=== PATIENT | female | born 1975 | race Hispanic/Latino ===

== ENCOUNTER 2017-11-19 02:27 | Emergency (ER) | payer BC ==
[2017-11-19 03:16] LABS: Bilirubin Negative (Negative); Blood, Urine Large (Negative); Clarity CLEAR (Clear); Glucose, Urine (Dipstick) Negative (Negative); Leukocyte Negative (Negative); Nitrite Negative (Negative); Protein, Urine (Dipstick) Negative (Neg-Trace); Specific Gravity, Urine 1.021 (1.002-1.036); Urobilinogen 0.2 mg/dL (0.2-1.0); pH, Urine 6.5 (5.0-9.0)
[2017-11-19 03:19] LABS: Bacteria/HPF None Seen HPF (None Seen); Hyaline Casts/LPF 0-3 HYALINE CAST LPF (0-3 Hyaline); RBC/HPF GREATER THAN 50-TNTC HPF (0-3); Squamous Epithelial 0-3 HPF (0-3); WBC/HPF 0-3 HPF (0-3)
[2017-11-19 03:38] LABS: #Eosinphils 0.1 thou/uL (0.0-0.7); #Lymphocytes 1.6 thou/uL (1.20-3.40); #Monocytes 0.6 thou/uL (0.11-0.59); #Neutrophils 5.2 thou/uL (1.40-6.50); %Basophils 0.4 % (0.0-1.0); %Eosinophils 1.7 % (0.0-10.0); %Lymphocytes 21.3 % (21.0-51.0); %Monocytes 7.9 % (0.0-10.0); %Neutrophils 68.7 % (42.0-75.0); Hemoglobin 12.5 g/dL (12.0-16.0); Mean Corpuscular HGB CONC 33.3 g/dL (32.0-36.0); Mean Corpuscular Hemoglobin 29.9 pg (27.0-31.0); Mean Corpuscular Volume 89.8 fl (81.0-99.0); Mean Platelet Volume 9.1 fL (7.4-10.4); Platelet Count 148 thou/uL (130-400); RBC Distribution Width 12.7 % (11.5-14.5); Red Blood Cell (RBC) Count 4.17 mill/uL (4.20-5.40); White Blood Cell (WBC) Count 7.6 thou/uL (4.8-10.8)
[2017-11-19 03:48] LABS: Pregnancy Test - Urine (BHCG) Negative (Negative); Pregu Control Background? CLEAR/WHITE (CLR/WHITE); Pregu Control Bar Appear? YES (CONTROL BAR); Specific Gravity 1.021 (1.002-1.036)
[2017-11-19 03:53] LABS: ALT (SGPT) 23 U/L (8-55); AST (SGOT) 20 U/L (5-34); Albumin 3.8 g/dL (3.5-5.0); Alkaline Phosphatase 128 U/L (40-150); Anion Gap 7 mmol/L (10-20); BUN (Urea Nitrogen) 16 mg/dL (7.0-18.7); Calc. Creatinine Clearance 0 mL/min (70-130); Calcium 8.8 mg/dL (7.8-10.44); Carbon Dioxide 24 mmol/L (22-29); Chloride 109 mmol/L (98-107); Estimated GFR-MDRD Greater than 90; Globulin 2.9 g/dL (2.4-3.5); Glucose 102 mg/dL (70-105); Lipase 16 U/L (8-78); Potassium 3.8 mmol/L (3.5-5.1); Protein, Total 6.7 g/dL (6.0-8.3); Sodium 136 mmol/L (136-145)
[2017-11-19] MEDS ORDERED: Ketorolac Tromethamine 60 MG/2 ML VIAL ONE (04:09)
--- NOTE | 2017-11-19 08:12 | ULT ---
PRELIMINARY REPORT/[facility]/EMERGENCY AFTER HOURS PROCEDURE: EXAM: US Pelvis Complete, Transabdominal US Pelvis, Transvaginal US Duplex Arterial/Venous of the Pelvis, Complete CLINICAL HISTORY: 42 years old, female; Pain; Pelvic pain; Patient HX: Pelvic cramping pain from midline pelvic to rlq TECHNIQUE: Real-time transabdominal and transvaginal pelvic ultrasound (complete) with image documentation. Transvaginal imaging was used for better evaluation of the endometrium and adnexa. Real-time duplex ultrasound scan of the arterial and venous flow of the pelvis with color Doppler amarilis w and spectral waveform analysis was also performed for evaluation of pelvic and ovarian blood flow a nd torsion. COMPARISON: No relevant prior studies available. FINDINGS: Transabdominal ultrasound did not reveal detailed visualization of endometrium/uterus. Ovaries were also not visualized on transabdominal ultrasound. Therefore a transvaginal ultrasound wa s performed for further evaluation. Uterus/cervix: Endometrium measures 1.5 cm in thickness. No myometrial mass. Right ovary: No acute findings. No mass. Normal blood flow. No evidence of torsion. Left ovary: Left ovarian hypoechoic lesion with low level echoes measuring up to 3 cm; differential d iagnosis includes corpus luteum, hemorrhagic cyst/endometrioma. Otherwise no acute findings. Normal blood flow. No evidence of torsion. Free fluid: No free fluid. IMPRESSION: No definite acute findings. Thickened endometrium; correlate with menstrual cycle. Left ovarian compl ex lesion/cyst described above; recommend followup as indicated. Thank you for allowing us to participate in the care of your patient. Dictated and Authenticated by: Brayan Alfaro MD 11/19/2017 5:38 AM Central Time ([place] & [place]) FINAL REPORT TRANSABDOMINAL AND TRANSVAGINAL AND FOFANA SCALE WITH COLOR FLOW AND SPECTRAL DOPPLER ULTRASOUND OF THE PELVIS: Date: 11/19/17 FINDINGS/IMPRESSION: I agree with the preliminary report given by Dr. Brayan Alfaro of [facility]. POS: OFF
== END 2017-11-19 06:51 | disposition home or self-care (01) ==
LOC: ERS 02:27
DX: N83.202 Unspecified ovarian cyst, left side (principal); E11.9 Type 2 diabetes mellitus without complications
CPT/HCPCS: 36415; 76856; 80053; 81003; 81015; 81025; 83690; 85025; 96372; J1885

== ENCOUNTER 2019-02-16 21:58 | Inpatient (IN) | payer BC ==
[~2019-02-16 21:58] MED LIST: ISOVUE-370 76%-LOCM 1 ML ONE
[2019-02-16 22:53] LABS: #Eosinphils 0.1 thou/uL (0.0-0.7); #Lymphocytes 2.6 thou/uL (1.20-3.40); #Monocytes 0.5 thou/uL (0.11-0.59); #Neutrophils 4.5 thou/uL (1.40-6.50); %Basophils 0.5 % (0.0-1.0); %Eosinophils 1.4 % (0.0-10.0); %Lymphocytes 33.3 % (21.0-51.0); %Monocytes 6.7 % (0.0-10.0); Hemoglobin 12.2 g/dL (12.0-16.0); Mean Corpuscular HGB CONC 33.2 g/dL (32.0-36.0); Mean Corpuscular Hemoglobin 29.2 pg (27.0-31.0); Mean Corpuscular Volume 87.9 fL (78.0-98.0); Mean Platelet Volume 9.9 fL (7.4-10.4); Platelet Count 192 thou/uL (130-400); RBC Distribution Width 11.9 % (11.5-14.5); Red Blood Cell (RBC) Count 4.17 mill/uL (4.20-5.40); White Blood Cell (WBC) Count 7.8 thou/uL (4.8-10.8)
[2019-02-16 23:12] LABS: ALT (SGPT) 37 U/L (8-55); AST (SGOT) 28 U/L (5-34); Albumin 4.2 g/dL (3.5-5.0); Alkaline Phosphatase 157 U/L (40-150); Anion Gap 15 mmol/L (10-20); BUN (Urea Nitrogen) 13 mg/dL (7.0-18.7); Bilirubin, Total 0.5 mg/dL (0.2-1.2); Calc. Creatinine Clearance 0 mL/min (70-130); Calcium 9.6 mg/dL (7.8-10.44); Carbon Dioxide 20 mmol/L (22-29); Chloride 108 mmol/L (98-107); Estimated GFR-MDRD Greater than 90; Globulin 3.3 g/dL (2.4-3.5); Glucose 107 mg/dL (70-105); Potassium 3.5 mmol/L (3.5-5.1); Protein, Total 7.5 g/dL (6.0-8.3); Sodium 139 mmol/L (136-145)
[2019-02-16] MEDS ORDERED: Ondansetron PF 4 MG/2 ML Vial ONE (23:19)
[2019-02-16] MEDS ORDERED: Morphine 4 MG/ML VIAL ONE (23:19)
[2019-02-16 23:38] LABS: Bilirubin Negative (Negative); Blood, Urine Negative (Negative); Clarity CLOUDY (Clear); Glucose, Urine (Dipstick) Negative (Negative); Leukocyte Trace (Negative); Nitrite Negative (Negative); Protein, Urine (Dipstick) 30 mg/dL (Neg-Trace); Specific Gravity, Urine 1.024 (1.002-1.036)
[2019-02-16 23:40] LABS: Bacteria/HPF Rare-Few HPF (None Seen); Hyaline Casts/LPF 4-6 HYALINE CAST LPF (0-3 Hyaline); WBC/HPF 0-3 HPF (0-3)
[2019-02-16 23:53] LABS: RBC/HPF 0-3 HPF (0-3)
[2019-02-17] MEDS ORDERED: ceFOXitin 2 GM/50 ML Duplex BAG IVPB SCH (01:30)
[2019-02-17] MEDS ORDERED: Ondansetron PF 4 MG/2 ML Vial IVP PRN ×2 (02:26→02:55)
[2019-02-17] MEDS ORDERED: Morphine 4 MG/ML VIAL SLOW IVP PRN (02:26)
[2019-02-17] MEDS ORDERED: Ondansetron ODT 4 MG TAB SL PRN (02:26)
[2019-02-17] MEDS ORDERED: Dextrose 5 % And 0.9 % NaCl 1,000 ML IV SCH (02:30)
[2019-02-17] MEDS ORDERED: Promethazine HCl 25 MG/ML VIAL IM PRN ×2 (02:55→14:22)
[2019-02-17] MEDS ORDERED: hydrALAZINE 20 MG/ML VIAL SLOW IVP PRN (02:55)
[2019-02-17] MEDS ORDERED: Dextrose 5% in Water 1,000 ML IV PRN (02:55)
[2019-02-17] MEDS ORDERED: Morphine 2 MG/ML SYRINGE SLOW IVP PRN (02:55)
[2019-02-17] MEDS ORDERED: Acetaminophen 325 MG TAB PO PRN (02:55)
[2019-02-17] MEDS ORDERED: Dextrose 50% Abboject 50 ML SYRINGE SLOW IVP PRN (02:55)
[2019-02-17 03:12] VITALS: BMI 33.6
[2019-02-17] MEDS: Lactated Ringer's 1,000 ML IV SCH ×3 (03:26→19:45)
[2019-02-17 05:08] LABS: #Eosinphils 0.1 thou/uL (0.0-0.7); #Lymphocytes 2.5 thou/uL (1.20-3.40); #Monocytes 0.6 thou/uL (0.11-0.59); #Neutrophils 4.9 thou/uL (1.40-6.50); %Basophils 0.4 % (0.0-1.0); %Eosinophils 0.9 % (0.0-10.0); %Lymphocytes 30.6 % (21.0-51.0); %Monocytes 7.8 % (0.0-10.0); %Neutrophils 60.4 % (42.0-75.0); Hemoglobin 11.9 g/dL (12.0-16.0); Mean Corpuscular HGB CONC 32.8 g/dL (32.0-36.0); Mean Corpuscular Hemoglobin 29.4 pg (27.0-31.0); Mean Corpuscular Volume 89.4 fL (78.0-98.0); Mean Platelet Volume 9.8 fL (7.4-10.4); Platelet Count 189 thou/uL (130-400); Red Blood Cell (RBC) Count 4.06 mill/uL (4.20-5.40); White Blood Cell (WBC) Count 8.1 thou/uL (4.8-10.8)
[2019-02-17 05:27] LABS: Anion Gap 11 mmol/L (10-20); BUN (Urea Nitrogen) 9 mg/dL (7.0-18.7); Calc. Creatinine Clearance 145 mL/min (70-130); Calcium 8.8 mg/dL (7.8-10.44); Carbon Dioxide 21 mmol/L (22-29); Chloride 108 mmol/L (98-107); Estimated GFR-MDRD Greater than 90; Glucose 108 mg/dL (70-105); Potassium 3.9 mmol/L (3.5-5.1); Sodium 136 mmol/L (136-145)
[2019-02-17] MEDS: Ketorolac Tromethamine 30 MG/ML VIAL IVP SCH ×3 (06:04→18:11)
--- NOTE | 2019-02-17 07:09 | HP ---
CHIEF COMPLAINT: Right lower quadrant abdominal pain and right mid to lower back pain. HISTORY OF PRESENT ILLNESS: The patient is a 43-year-old female. She underwent a robotic hysterectomy and bilateral salpingo-oophorectomy per Dr. Bre Noble on January 30 (postoperative day #18 today). She tells me she did not have any problems after that surgery. Yesterday, about 24 hours ago, she developed pain in her right mid abdomen and it seemed to radiate through to her back. She had nausea and vomiting associated with this. This pain persisted through the day and into this evening and she presented to the hospital for further evaluation. She was seen in the emergency room where she underwent laboratory and radiologic studies. The CT scan of her abdomen was consistent with an enlarged appendix, but with minimal stranding around this. There was apparently some consideration of choledocholithiasis, but I am not able to appreciate this on examination of her CT. Laboratory studies revealed that her urine was cloudy with a trace of leukocyte esterase, but only 0-3 white blood cells and rare bacteria. Her CBC showed a white blood cell count of 7.8 with a hemoglobin of 12.2 and an entirely normal differential. Chemistry profile revealed essentially normal electrolytes. Her CO2 was a little bit low at 20. Her liver function tests are normal except for an alkaline phosphatase of 157. PAST MEDICAL HISTORY: She denies any significant medical problems. PAST SURGICAL HISTORY: Only the robotic assisted hysterectomy and bilateral salpingo-oophorectomy on January 30. ALLERGIES: NO KNOWN DRUG ALLERGIES. CHRONIC MEDICATIONS: None. PERSONAL AND SOCIAL HISTORY: She is with 3 children. Her is present at bedside. She does not smoke. Does not drink alcohol. She works at [employer] usually. She is originally from [place], but has lived here since she was 14 years old. PRIMARY CARE PHYSICIAN: Isi Arshad MD REVIEW OF SYSTEMS: Ten system review was obtained and was otherwise negative. FAMILY HISTORY: Noncontributory. PHYSICAL EXAMINATION: VITAL SIGNS: She is afebrile. Pulse is 72, blood pressure is 110/70. GENERAL: She is a well-developed, well-nourished, pleasant female resting in bed, in no acute distress. She is alert and oriented x3. HEAD, EYES, EARS, NOSE, AND THROAT: Unremarkable. NECK: Supple without mass or tenderness. LUNGS: Clear to auscultation throughout. CARDIAC: Regular rate and rhythm without murmur. ABDOMEN: Soft with hypoactive bowel sounds. It is nondistended. Her robotic incisions all appear to be nicely healed. She has no tenderness at all on palpation of the left side of her abdomen. Her right upper quadrant and the subcostal areas are nontender as well. She does have focal tenderness in the right lower quadrant with guarding. EXTREMITIES: Unremarkable. ASSESSMENT: The patient with CT evidence of appendicitis. It is unusual that her white blood cell count and differential are entirely normal, but her CT scan goes along with her physical examination. I would recommend a laparoscopic appendectomy. I have discussed the operation in detail with the patient as well as potential risks. She understands and agrees to proceed with surgery. She will be admitted to the hospital and IV antibiotics will be initiated and the surgery will be performed later today. Job ID: [id number]
--- NOTE | 2019-02-17 07:27 | ULT ---
RIGHT UPPER QUADRANT ULTRASOUND: Date: 02/17/19 INDICATION: Right upper quadrant pain. COMPARISON: CT abdomen and pelvis with contrast dated 02/17/19. FINDINGS: There is a small focal region of echogenicity and shadowing near the expected region of the proximal common bile duct or cystic duct which may reflect shadowing from adjacent bowel gas; however, a small , impacted stone within the proximal common bile duct cannot be entirely excluded. No definite stone is seen by CT; however, not all stones are apparent by CT. There is mild intrahepatic biliary ductal dilatation. Common bile duct is 6 mm, which is upper limits of normal for size. A small amount of slu dge is present within the gallbladder. There is mild gallbladder wall thickening. There is report of a positive sonographic Kidd's sign. No pericholecystic fluid is evident. The pancreas is largely ob scured. There is slight increased echogenicity of the liver consistent with fatty infiltration. The r ight kidney measured 10.0 cm in length without evidence of focal renal lesion or hydronephrosis. IMPRESSION: 1. Small suspected shadowing stone seen near the region of the cystic duct or possibly within the re gion of the proximal common bile duct. There is slight prominence of intrahepatic biliary system. The re is a mild amount of gallbladder sludge with gallbladder wall thickening and positive sonographic M urphy's sign. Findings may reflect sequelae of an acute calculus cholecystitis with associated choled ocholithiasis. Further evaluation with MRCP may be helpful for additional characterization. 2. Fatty liver. POS: BH
--- NOTE | 2019-02-17 07:29 | CT ---
PRELIMINARY REPORT: CT Abdomen and Pelvis With Contrast EXAM DATE/TIME: 02/17/2019 12:01 AM CLINICAL HISTORY: 43 years old, female; Abdominal pain; Prior surgery; Patient HX: Er 6. Abdomen soft, tender, to the right upper quadrant, and recent hysterectomy -oophorectomy - with incisions to umbilicus and right and left mid quads TECHNIQUE: Axial computed tomography images of the abdomen and pelvis with intravenous contrast. Coronal reformatted images were created and reviewed. COMPARISON: No relevant prior studies available. FINDINGS: ABDOMEN: Liver: Normal. No mass. Gallbladder and bile ducts: 4 mm stone in the distal common bile duct with mild prominence of the common bile duct up to 8 mm in caliber, compatible with obstructive choledocholithiasis. Gallbladder sludge/cholelithiasis. No cholecystitis or biliary ductal dilatation. Pancreas: Normal. No ductal dilation. Spleen: Normal. No splenomegaly. Adrenals: Normal. No mass. Kidneys and ureters: Normal. No hydronephrosis. Stomach and bowel: No bowel wall thickening or intestinal obstruction. Appendix: The appendix is enlarged at 1.2 cm in caliber with mild periappendiceal inflammation, consistent with acute appendicitis. Appendix is retrocecal. PELVIS: Bladder: Unremarkable as visualized. Reproductive: Prior hysterectomy. ABDOMEN and PELVIS: Intraperitoneal space: No pneumoperitoneum or abscess. Bones/joints: No acute fracture. No dislocation. Soft tissues: Unremarkable. Vasculature: Normal. No abdominal aortic aneurysm. Lymph nodes: Normal. No enlarged lymph nodes. IMPRESSION: 1. Acute retrocecal appendicitis. 2. 4 mm stone in the distal common bile duct with mild prominence of the common bile duct up to 8 mm in caliber, compatible with obstructive choledocholithiasis. Thank you for allowing us to participate in the care of your patient. Dictated and Authenticated by: Nasir Zhang MD 02/17/2019 12:47 AM Central Time ([place] & [place]) FINAL REPORT: CT abdomen and pelvis with IV contrast 02/17/2019 performed on emergent basis at 0003 hours HISTORY: Right lower quadrant pain. FINDINGS: I agree with the preliminary report by Dr. Zhang from [facility]. Acute appendicitis. Obstructive choledocholithiasis with probable acute cholecystitis. Code QA. Transcribed Date/Time: 02/17/2019 8:34 AM
[2019-02-17] MEDS: Famotidine/PF 20 mg/2ml Vial SLOW IVP SCH ×2 (10:07→22:08)
[2019-02-17] MEDS: cefOXitin Sodium/Dextrose,Iso 2 GM in Premix Bag 1 BAG IVPB SCH ×2 (11:38→18:37)
[2019-02-17] MEDS ORDERED: Bupivacaine/Epinephrine 0.25% 30 ML VIAL ONE (12:38)
[2019-02-17] MEDS ORDERED: Lidocaine 2% Jelly 5 ML TUBE ONE (12:42)
[2019-02-17] MEDS ORDERED: Fentanyl 100 MCG/2 ML VIAL ONE ×3 (12:42→14:51)
[2019-02-17] MEDS ORDERED: Dexamethasone 20 MG/5 ML VIAL ONE (13:43)
[2019-02-17] MEDS ORDERED: Lidocaine 1% PF 5 ML VIAL ONE (13:43)
[2019-02-17] MEDS ORDERED: Glycopyrrolate 0.2 MG/ML 5 ML SYRINGE ONE (13:43)
[2019-02-17] MEDS ORDERED: PROPOFOL 200 MG/20 ML VIAL ONE (13:43)
[2019-02-17] MEDS ORDERED: Succinylcholine Chloride 20 MG/ML 10 ml SYRINGE FS ONE (13:43)
[2019-02-17] MEDS ORDERED: ePHEDrine 50 MG/ML VIAL ONE (13:43)
[2019-02-17] MEDS ORDERED: PHENYLEPHRINE-NS 100 MCG/ML 10 ML SYRINGE ONE (13:43)
[2019-02-17] MEDS ORDERED: Ondansetron PF 4 MG/2 ML Vial ONE (13:43)
[2019-02-17] MEDS ORDERED: Rocuronium Bromide 10 MG/ML (10ML VIAL) ONE (13:43)
[2019-02-17] MEDS ORDERED: Promethazine HCl 25 MG/ML VIAL SLOW IVP PRN (14:22)
[2019-02-17] MEDS ORDERED: Ondansetron HCl/PF 4 MG/2 ML Vial IVP PRN (14:22)
[2019-02-18] MEDS: Ketorolac Tromethamine 30 MG/ML VIAL IVP SCH ×2 (00:09→05:30)
[2019-02-18] MEDS: cefOXitin Sodium/Dextrose,Iso 2 GM in Premix Bag 1 BAG IVPB SCH ×2 (02:23→10:14)
[2019-02-18] MEDS: Lactated Ringer's 1,000 ML IV SCH (03:49)
[2019-02-18 04:59] LABS: #Lymphocytes 1.3 thou/uL (1.20-3.40); #Monocytes 0.7 thou/uL (0.11-0.59); %Basophils 0.1 % (0.0-1.0); %Eosinophils 0.1 % (0.0-10.0); %Neutrophils 81.8 % (42.0-75.0); Hemoglobin 11.4 g/dL (12.0-16.0); Mean Corpuscular HGB CONC 32.8 g/dL (32.0-36.0); Mean Corpuscular Hemoglobin 29.3 pg (27.0-31.0); Mean Corpuscular Volume 89.5 fL (78.0-98.0); Mean Platelet Volume 9.6 fL (7.4-10.4); Platelet Count 199 thou/uL (130-400); Red Blood Cell (RBC) Count 3.89 mill/uL (4.20-5.40)
[2019-02-18 08:02] VITALS: BP 96/62; TEMP 98.5
[2019-02-18] MEDS: Famotidine/PF 20 mg/2ml Vial SLOW IVP SCH (10:14)
--- NOTE | 2019-02-19 05:37 | DIS ---
DATE OF ADMISSION: 02/17/2019 DATE OF DISCHARGE: 02/18/2019 HOSPITAL COURSE: Ms. Blount is postoperative day #1 from laparoscopic appendectomy. There were questions on her CT scan regarding her gallbladder. I examined this during her surgery and her gallbladder had no evidence of inflammatory change. There were no definite gallstones in her gallbladder. I elected against gallbladder removal at the time of her surgery. There was no evidence of other intra-abdominal problem. She did clearly have an enlarged and inflamed appendix. The patient complained of some postoperative discomfort and some dizziness and she did not go home as instructed yesterday. She instead spent the night. This morning, she tells me she feels better. She is eating her regular diet when I arrived this morning. She has had no nausea or vomiting. PHYSICAL EXAMINATION: VITAL SIGNS: She is afebrile. Pulse 67 and blood pressure 96/62. LUNGS: Clear to auscultation. CARDIAC: Regular rate and rhythm without murmur. ABDOMEN: Soft, nontender, and nondistended. Laparoscopic incisions are healing nicely. LABORATORY DATA: Her white blood cell count is 11.0 this morning with a hemoglobin of 11.4. Her electrolytes are essentially unremarkable. ASSESSMENT: The patient has done well following laparoscopic appendectomy. She is stable for discharge. She has a prescription for tramadol for home use, and I will see her back in my office in 2 weeks. Job ID: [id number]
--- NOTE | 2019-02-19 13:30 | OP ---
DATE OF PROCEDURE: 02/17/2019 PREOPERATIVE DIAGNOSIS: Acute appendicitis. POSTOPERATIVE DIAGNOSIS: Acute appendicitis. OPERATION PERFORMED: Laparoscopic appendectomy. ANESTHESIA: General endotracheal. INDICATIONS: The patient is a 43-year-old female. She presented at this time with findings consistent with acute appendicitis. There was some concern raised on her imaging studies regarding gallbladder problems as well. She, however, did not have typical gallbladder symptoms nor elevated liver function tests and I decided to base my decision regarding her gallbladder on the appearance intraoperatively. PROCEDURE IN DETAIL: Informed consent was obtained. The patient was taken to the operating room where general endotracheal anesthesia was obtained with the patient in the supine position. Local anesthetic was infiltrated into the intended incision sites, and a 5 mm infraumbilical incision was created. Veress needle was passed into the peritoneal cavity. Pneumoperitoneum was established using carbon dioxide up to a pressure of 15 mmHg. A 5 mm trocar port was passed through the same incision. Laparoscopic camera was passed through this port. Under direct vision, 2 additional ports were placed including a 5 mm right subcostal port and a 10/12 mm suprapubic port. Attention was then turned to the right lower quadrant. After mobilization of bowel, there was obvious evidence of acute appendicitis. The appendix was gently mobilized away from the surrounding structures, and the mesoappendix was grasped. It was divided with the tripolar cautery so as to skeletonize the base of the appendix. The appendix was then divided with the Endo CAMILA stapler to include a small cuff of cecum. Staple lines were intact. The appendix was placed into a laparoscopic pouch and retrieved through the suprapubic port. The fascia at this port was approximated with 0 Vicryl suture and the Granee needle. Port was replaced, and the right lower quadrant was inspected. Hemostasis was found to be intact, and the area was irrigated. Staple line was also noted to be intact. All ports and instruments were removed under direct vision. Pneumoperitoneum was carefully evacuated. 0.25% Marcaine with epinephrine was infiltrated into each port site. Skin edges were approximated with 4-0 Prolene subcuticular suture as well as Steri-Strips and Mastisol. Band-Aid dressings were applied. There were no complications. The patient tolerated the procedure well and was taken to Recovery in stable condition. FINDINGS: Her appendix was thickened throughout and the base was large enough that I felt it was safer to staple this. I therefore used the 45 mm white load of the [place] stapler to divide the appendix. Additionally, I inspected the gallbladder and this had a very normal appearance with no distention or inflammation, whatsoever. I therefore decided not to take out her gallbladder. Job ID: [id number]
== END 2019-02-18 11:15 | disposition home or self-care (01) | DRG 343 ==
LOC: ERS 21:58 → SURG A 02-17 01:15
PROVIDERS: ADMIT Specialist; ATTEND Specialist
PROC: 0DTJ4ZZ Resection of Appendix, Percutaneous Endoscopic Approach (ICD-10-PCS; principal; 2019-02-17)
DX: K35.80 Unspecified acute appendicitis (principal); E11.9 Type 2 diabetes mellitus without complications; Z90.710 Acquired absence of both cervix and uterus
CPT/HCPCS: 36415; 74177; 76705; 80048; 80053; 81003; 81015; 83605; 83690; 85025; 87040; 88304; 96365; 96375; J0694; J1100; J1885; J2001; J2270; J2405; J2704; J3010; J3490; Q9966; S0028

== ENCOUNTER 2020-04-07 10:59 | Outpatient (CLI) | payer BC ==
--- NOTE | 2020-04-07 11:50 | MMO ---
Bilateral MAMMO Bilat Screen [facility]. CLINICAL HISTORY: Patient is 45 years old and is seen for screening. The patient has no family history of breast cancer. The patient has no personal history of cancer. VIEWS: The views performed were: bilateral craniocaudal with tomosynthesis and bilateral mediolateral oblique with tomosynthesis. This study has been interpreted with the assistance of computer-aided detection. MAMMOGRAM FINDINGS: There are scattered fibroglandular densities. There are stable benign appearing calcifications seen in both breasts. There are no suspicious masses, suspicious calcifications, or new areas of architectural distortion. IMPRESSION: THERE IS NO MAMMOGRAPHIC EVIDENCE OF MALIGNANCY. A ROUTINE FOLLOW-UP MAMMOGRAM IN 1 YEAR IS RECOMMENDED. THE RESULTS OF THIS EXAM WERE SENT TO THE PATIENT. ACR BI-RADS Category 2 - Benign finding MAMMOGRAPHY NOTE: 1. A negative mammogram report should not delay a biopsy if a dominant of clinically suspicious mass is present. 2. Approximately 10% to 15% of breast cancers are not detected by mammography. 3. Adenosis and dense breasts may obscure an underlying neoplasm. Reported by: GUERLINE LARSEN MD Electonically Signed: [id number]
== END 2020-04-07 11:00 | disposition home or self-care (01) ==
LOC: BICMAMMO 10:59
PROVIDERS: ATTEND Family Medicine
DX: Z12.31 Encounter for screening mammogram for malignant neoplasm of breast (principal)
CPT/HCPCS: 77063; 77067